=== PATIENT | male | born 1940 | race Caucasian/White ===

== ENCOUNTER 2017-04-28 11:02 | Day surgery (SDC) ==
[2017-04-28] MEDS ORDERED: LIDOCAINE 1% 20 ML MDV ID STA (12:34)
[2017-04-28] MEDS ORDERED: DIPRIVAN 20 ML VIAL IVP ONE (13:30)
[2017-04-28] MEDS ORDERED: VERSED ONE (13:30)
[2017-04-28 15:27] VITALS: BP 126/76; TEMP 98.7
--- NOTE | 2017-04-29 10:47 | OP ---
PROCEDURE: COLONOSCOPY TO THE CECUM WITH SNARE POLYPECTOMY. ENDOSCOPIST: Kaitlin GUEVARA M.D. INDICATION: CHANGE IN BOWEL HABITS, HISTORY OF POLYPS. INSTRUMENT: [id number]-190. MEDICATION: PER ANESTHESIA. PROCEDURE: The patient was positioned for colonoscopy. The digital rectal exam was negative. The colonoscope was inserted through the anus and advanced to the cecum. Two small polyps in the ascending colon removed using cold snare polypectomy. Both were 3 to 4 mm in size. A 5 mm polyp removed at the hepatic flexure using cold snare polypectomy. Diverticulosis was noted throughout the colon. Retroflex exam was otherwise normal. Withdrawal time 10 minutes. [place] Bowel Prep Score of 9. PLAN: 1. Repeat colonoscopy in 5 years. 2. Continue Miralax for his constipation. [email or web address]
== END 2017-04-28 14:25 | disposition home or self-care (01) ==
LOC: SURG 11:02
PROVIDERS: ATTEND Internal Medicine Gastroenterology
DX: Z09 Encounter for follow-up examination after completed treatment for conditions other than malignant neoplasm (principal); Z86.010 Personal history of colon polyps; D12.2 Benign neoplasm of ascending colon; D12.3 Benign neoplasm of transverse colon; K57.30 Diverticulosis of large intestine without perforation or abscess without bleeding; R19.4 Change in bowel habit